=== PATIENT | male | born 1960 | race African-American/Black ===

== ENCOUNTER 2023-03-01 10:43 | Inpatient (IN) | payer MEDICARE ==
[2023-03-01] MEDS ORDERED: Senokot S 8.6-50 MG TAB PO PRN (12:58)
[2023-03-01] MEDS ORDERED: Ondansetron ODT 4 MG TAB SL PRN (12:58)
[2023-03-01] MEDS ORDERED: Mometasone/Formoterol 60 PUFF AER INH SCH (20:15)
[2023-03-01] MEDS: Methocarbamol 500 MG TAB PO SCH ×3 (20:59→21:03)
[2023-03-01] MEDS: Pregabalin 50 MG CAP PO SCH (21:00)
[2023-03-01] MEDS: Atorvastatin Calcium 20 MG TAB PO SCH (21:00)
[2023-03-01] MEDS: levETIRAcetam 500 MG TAB PO SCH (21:00)
[2023-03-01] MEDS: Scopolamine 1.5 mg/72 hour Patch TD SCH (21:04)
[2023-03-02 05:49] LABS: #Basophils 0.1 thou/uL (0.0-0.2); #Eosinphils 0.1 thou/uL (0.0-0.7); #Lymphocytes 2.3 thou/uL (1.20-3.40); #Monocytes 0.6 thou/uL (0.11-0.59); #Neutrophils 4.9 thou/uL (1.40-6.50); %Basophils 1.4 % (0.0-1.0); %Eosinophils 1.3 % (0.0-10.0); %Lymphocytes 28.9 % (21.0-51.0); %Monocytes 7.4 % (0.0-10.0); Hemoglobin 12.6 g/dL (14.0-18.0); Mean Corpuscular HGB CONC 31.7 g/dL (32.0-36.0); Mean Corpuscular Hemoglobin 27.6 pg (27.0-31.0); Mean Platelet Volume 7.3 fL (7.4-10.4); Platelet Count 409 10x3/uL (130-400); RBC Distribution Width 12.5 % (11.5-14.5); Red Blood Cell (RBC) Count 4.58 mill/uL (4.70-6.10); White Blood Cell (WBC) Count 8.1 10x3/uL (4.8-10.8)
[2023-03-02 06:05] LABS: ALT (SGPT) 66 U/L (8-55); AST (SGOT) 37 U/L (5-34); Alkaline Phosphatase 212 U/L (40-110); Anion Gap 17 mmol/L (10-20); BUN (Urea Nitrogen) 11 mg/dL (8.4-25.7); Bilirubin, Total 0.5 mg/dL (0.2-1.2); Calc. Creatinine Clearance 157 mL/min (70-130); Carbon Dioxide 23 mmol/L (23-31); Chloride 98 mmol/L (98-107); Estimated GFR 82; Globulin 3.4 g/dL (2.4-3.5); Glucose 102 mg/dL (80-115); Potassium 3.7 mmol/L (3.5-5.1); Protein, Total 7.4 g/dL (5.8-8.1); Sodium 134 mmol/L (136-145)
[2023-03-02] MEDS: Mometasone/Formoterol 60 PUFF AER INH SCH ×2 (06:10→18:35)
[2023-03-02] MEDS: Pregabalin 50 MG CAP PO SCH ×2 (08:56→21:25)
[2023-03-02] MEDS: Ferrous Sulfate 325 MG TAB PO SCH (08:56)
[2023-03-02] MEDS: Methocarbamol 500 MG TAB PO SCH ×3 (08:57→21:25)
[2023-03-02] MEDS: levETIRAcetam 500 MG TAB PO SCH ×2 (08:57→21:26)
[2023-03-02] MEDS: DULoxetine 30 MG CAP PO SCH (08:57)
[2023-03-02] MEDS ORDERED: Non-Formulary Item 1 EACH (Fluticasone/Umeclidin/Vilanter [Trelegy Ellipta 200-62.5-25] 1 IH SCH (09:00)
[2023-03-02] MEDS: Acetaminophen 325 MG TAB PO PRN (09:03)
[2023-03-02] MEDS ORDERED: hydrALAZINE 10 MG TAB PO PRN (16:42)
[2023-03-02] MEDS ORDERED: Meclizine HCl 25 MG TAB PO PRN (17:00)
[2023-03-02] MEDS: Atorvastatin Calcium 20 MG TAB PO SCH (21:25)
[2023-03-03] MEDS: Mometasone/Formoterol 60 PUFF AER INH SCH ×2 (05:42→18:29)
[2023-03-03] MEDS: DULoxetine 30 MG CAP PO SCH (08:49)
[2023-03-03] MEDS: Ferrous Sulfate 325 MG TAB PO SCH (08:49)
[2023-03-03] MEDS: levETIRAcetam 500 MG TAB PO SCH ×2 (08:50→21:16)
[2023-03-03] MEDS: Methocarbamol 500 MG TAB PO SCH ×3 (08:51→21:16)
[2023-03-03] MEDS: Pregabalin 50 MG CAP PO SCH ×2 (08:51→21:17)
[2023-03-03] MEDS: Acetaminophen 325 MG TAB PO PRN ×2 (08:53→18:45)
[2023-03-03] MEDS: Atorvastatin Calcium 20 MG TAB PO SCH (21:16)
[2023-03-04] MEDS: Mometasone/Formoterol 60 PUFF AER INH SCH ×2 (05:36→18:17)
[2023-03-04] MEDS: Methocarbamol 500 MG TAB PO SCH ×3 (08:07→21:56)
[2023-03-04] MEDS: DULoxetine 30 MG CAP PO SCH (08:07)
[2023-03-04] MEDS: Ferrous Sulfate 325 MG TAB PO SCH (08:07)
[2023-03-04] MEDS: levETIRAcetam 500 MG TAB PO SCH ×2 (08:07→21:56)
[2023-03-04] MEDS: Pregabalin 50 MG CAP PO SCH ×2 (08:07→21:56)
[2023-03-04 13:37] LABS: Anion Gap 16 mmol/L (10-20); BUN (Urea Nitrogen) 10 mg/dL (8.4-25.7); Calc. Creatinine Clearance 154 mL/min (70-130); Calcium 9.7 mg/dL (7.8-10.44); Carbon Dioxide 23 mmol/L (23-31); Chloride 102 mmol/L (98-107); Estimated GFR 80; Glucose 113 mg/dL (80-115); Magnesium 1.7 mg/dL (1.6-2.6); Potassium 3.6 mmol/L (3.5-5.1); Sodium 137 mmol/L (136-145)
[2023-03-04] MEDS: Atorvastatin Calcium 20 MG TAB PO SCH (21:56)
[2023-03-04] MEDS: Scopolamine 1.5 mg/72 hour Patch TD SCH (22:00)
[2023-03-05 05:28] VITALS: BMI 46.0
[2023-03-05] MEDS: Mometasone/Formoterol 60 PUFF AER INH SCH ×2 (06:13→17:57)
[2023-03-05] MEDS: levETIRAcetam 500 MG TAB PO SCH ×2 (08:19→20:56)
[2023-03-05] MEDS: Ferrous Sulfate 325 MG TAB PO SCH (08:19)
[2023-03-05] MEDS: DULoxetine 30 MG CAP PO SCH (08:19)
[2023-03-05] MEDS: Methocarbamol 500 MG TAB PO SCH ×3 (08:19→20:58)
[2023-03-05] MEDS: Pregabalin 50 MG CAP PO SCH ×2 (08:19→20:56)
[2023-03-05] MEDS: Acetaminophen 325 MG TAB PO PRN (20:57)
[2023-03-05] MEDS: Atorvastatin Calcium 20 MG TAB PO SCH (20:58)
[2023-03-06] MEDS: Mometasone/Formoterol 60 PUFF AER INH SCH ×2 (05:59→17:41)
[2023-03-06] MEDS: levETIRAcetam 500 MG TAB PO SCH ×2 (08:48→20:49)
[2023-03-06] MEDS: Ferrous Sulfate 325 MG TAB PO SCH (08:48)
[2023-03-06] MEDS: DULoxetine 30 MG CAP PO SCH (08:48)
[2023-03-06] MEDS: Methocarbamol 500 MG TAB PO SCH ×3 (08:48→20:50)
[2023-03-06] MEDS: Pregabalin 50 MG CAP PO SCH ×2 (08:48→20:49)
[2023-03-06] MEDS: Atorvastatin Calcium 20 MG TAB PO SCH (20:49)
[2023-03-07] MEDS: Mometasone/Formoterol 60 PUFF AER INH SCH ×2 (05:36→17:45)
[2023-03-07 05:56] LABS: #Basophils 0.1 thou/uL (0.0-0.2); #Eosinphils 0.1 thou/uL (0.0-0.7); #Lymphocytes 2.3 thou/uL (1.20-3.40); #Monocytes 0.5 thou/uL (0.11-0.59); #Neutrophils 3.3 thou/uL (1.40-6.50); %Basophils 1.5 % (0.0-1.0); %Lymphocytes 36.7 % (21.0-51.0); %Neutrophils 52.7 % (42.0-75.0); Hemoglobin 11.2 g/dL (14.0-18.0); Mean Corpuscular HGB CONC 30.8 g/dL (32.0-36.0); Mean Corpuscular Hemoglobin 27.2 pg (27.0-31.0); Mean Corpuscular Volume 88.4 fl (78.0-98.0); Mean Platelet Volume 7.6 fL (7.4-10.4); Platelet Count 310 10x3/uL (130-400); RBC Distribution Width 12.7 % (11.5-14.5); Red Blood Cell (RBC) Count 4.13 mill/uL (4.70-6.10); White Blood Cell (WBC) Count 6.3 10x3/uL (4.8-10.8)
[2023-03-07 06:08] LABS: Anion Gap 14 mmol/L (10-20); BUN (Urea Nitrogen) 8 mg/dL (8.4-25.7); Calc. Creatinine Clearance 173 mL/min (70-130); Calcium 9.5 mg/dL (7.8-10.44); Carbon Dioxide 25 mmol/L (23-31); Chloride 103 mmol/L (98-107); Estimated GFR 91; Glucose 109 mg/dL (80-115); Potassium 3.8 mmol/L (3.5-5.1); Sodium 138 mmol/L (136-145)
[2023-03-07] MEDS: Acetaminophen 325 MG TAB PO PRN (08:12)
[2023-03-07] MEDS: Methocarbamol 500 MG TAB PO SCH ×3 (08:13→20:52)
[2023-03-07] MEDS: Ferrous Sulfate 325 MG TAB PO SCH (08:14)
[2023-03-07] MEDS: DULoxetine 30 MG CAP PO SCH (08:14)
[2023-03-07] MEDS: levETIRAcetam 500 MG TAB PO SCH ×2 (08:14→20:51)
[2023-03-07] MEDS: Pregabalin 50 MG CAP PO SCH ×2 (08:14→20:51)
[2023-03-07] MEDS: Atorvastatin Calcium 20 MG TAB PO SCH (20:51)
[2023-03-07] MEDS: Scopolamine 1.5 mg/72 hour Patch TD SCH (20:52)
[2023-03-08] MEDS: Mometasone/Formoterol 60 PUFF AER INH SCH ×2 (06:27→17:37)
[2023-03-08] MEDS: levETIRAcetam 500 MG TAB PO SCH ×2 (07:45→20:36)
[2023-03-08] MEDS: Acetaminophen 325 MG TAB PO PRN ×2 (07:46→14:13)
[2023-03-08] MEDS: Methocarbamol 500 MG TAB PO SCH ×3 (07:47→20:36)
[2023-03-08] MEDS: Ferrous Sulfate 325 MG TAB PO SCH (07:47)
[2023-03-08] MEDS: Pregabalin 50 MG CAP PO SCH ×2 (07:47→20:36)
[2023-03-08] MEDS: DULoxetine 30 MG CAP PO SCH (07:47)
[2023-03-08] MEDS: Atorvastatin Calcium 20 MG TAB PO SCH (20:36)
[2023-03-09] MEDS: Mometasone/Formoterol 60 PUFF AER INH SCH ×2 (06:18→18:37)
[2023-03-09] MEDS: Ferrous Sulfate 325 MG TAB PO SCH (07:42)
[2023-03-09] MEDS: Pregabalin 50 MG CAP PO SCH ×2 (07:42→20:46)
[2023-03-09] MEDS: DULoxetine 30 MG CAP PO SCH (07:43)
[2023-03-09] MEDS: Methocarbamol 500 MG TAB PO SCH ×3 (07:43→20:46)
[2023-03-09] MEDS: levETIRAcetam 500 MG TAB PO SCH ×2 (07:43→20:46)
[2023-03-09] MEDS: Acetaminophen 325 MG TAB PO PRN ×2 (07:44→11:41)
[2023-03-09] MEDS: Atorvastatin Calcium 20 MG TAB PO SCH (20:46)
[2023-03-10] MEDS: Mometasone/Formoterol 60 PUFF AER INH SCH ×2 (07:17→18:25)
[2023-03-10] MEDS: Pregabalin 50 MG CAP PO SCH ×2 (07:52→21:06)
[2023-03-10] MEDS: Methocarbamol 500 MG TAB PO SCH ×3 (07:52→21:08)
[2023-03-10] MEDS: levETIRAcetam 500 MG TAB PO SCH ×2 (07:52→21:06)
[2023-03-10] MEDS: Ferrous Sulfate 325 MG TAB PO SCH (07:52)
[2023-03-10] MEDS: DULoxetine 30 MG CAP PO SCH (07:55)
[2023-03-10] MEDS: Scopolamine 1.5 mg/72 hour Patch TD SCH (10:37)
[2023-03-10] MEDS: Atorvastatin Calcium 20 MG TAB PO SCH (21:08)
[2023-03-11] MEDS: Mometasone/Formoterol 60 PUFF AER INH SCH ×2 (06:29→21:28)
[2023-03-11] MEDS: DULoxetine 30 MG CAP PO SCH (07:32)
[2023-03-11] MEDS: Pregabalin 50 MG CAP PO SCH ×2 (07:32→21:25)
[2023-03-11] MEDS: Methocarbamol 500 MG TAB PO SCH ×3 (07:33→21:24)
[2023-03-11] MEDS: levETIRAcetam 500 MG TAB PO SCH ×2 (07:33→21:24)
[2023-03-11] MEDS: Ferrous Sulfate 325 MG TAB PO SCH (07:33)
[2023-03-11] MEDS: Atorvastatin Calcium 20 MG TAB PO SCH (21:24)
[2023-03-12] MEDS: Mometasone/Formoterol 60 PUFF AER INH SCH ×2 (05:29→17:52)
[2023-03-12 05:45] LABS: #Basophils 0.1 thou/uL (0.0-0.2); #Eosinphils 0.1 thou/uL (0.0-0.7); #Lymphocytes 2.2 thou/uL (1.20-3.40); #Monocytes 0.5 thou/uL (0.11-0.59); #Neutrophils 3.8 thou/uL (1.40-6.50); %Basophils 1.7 % (0.0-1.0); %Eosinophils 1.9 % (0.0-10.0); %Lymphocytes 33.2 % (21.0-51.0); %Monocytes 7.6 % (0.0-10.0); %Neutrophils 55.7 % (42.0-75.0); Hemoglobin 11.7 g/dL (14.0-18.0); Mean Corpuscular HGB CONC 30.7 g/dL (32.0-36.0); Mean Corpuscular Hemoglobin 27.2 pg (27.0-31.0); Mean Corpuscular Volume 88.4 fl (78.0-98.0); Platelet Count 272 10x3/uL (130-400); RBC Distribution Width 12.8 % (11.5-14.5); White Blood Cell (WBC) Count 6.8 10x3/uL (4.8-10.8)
[2023-03-12 05:55] LABS: Anion Gap 16 mmol/L (10-20); BUN (Urea Nitrogen) 8 mg/dL (8.4-25.7); Calc. Creatinine Clearance 173 mL/min (70-130); Calcium 9.7 mg/dL (7.8-10.44); Carbon Dioxide 25 mmol/L (23-31); Chloride 103 mmol/L (98-107); Estimated GFR 91; Glucose 101 mg/dL (80-115); Potassium 3.8 mmol/L (3.5-5.1); Sodium 140 mmol/L (136-145)
[2023-03-12] MEDS: Pregabalin 50 MG CAP PO SCH ×2 (09:26→21:02)
[2023-03-12] MEDS: levETIRAcetam 500 MG TAB PO SCH ×2 (09:26→21:02)
[2023-03-12] MEDS: DULoxetine 30 MG CAP PO SCH (09:27)
[2023-03-12] MEDS: Methocarbamol 500 MG TAB PO SCH ×3 (09:27→21:02)
[2023-03-12] MEDS: Ferrous Sulfate 325 MG TAB PO SCH (09:27)
[2023-03-12] MEDS: Atorvastatin Calcium 20 MG TAB PO SCH (21:02)
[2023-03-13] MEDS: Mometasone/Formoterol 60 PUFF AER INH SCH ×2 (05:39→17:46)
[2023-03-13] MEDS: Ferrous Sulfate 325 MG TAB PO SCH (08:04)
[2023-03-13] MEDS: DULoxetine 30 MG CAP PO SCH (08:04)
[2023-03-13] MEDS: levETIRAcetam 500 MG TAB PO SCH ×2 (08:04→20:58)
[2023-03-13] MEDS: Pregabalin 50 MG CAP PO SCH ×2 (08:04→20:58)
[2023-03-13] MEDS: Methocarbamol 500 MG TAB PO SCH ×3 (08:04→20:58)
[2023-03-13] MEDS: Acetaminophen 325 MG TAB PO PRN ×3 (08:18→20:57)
[2023-03-13] MEDS: Atorvastatin Calcium 20 MG TAB PO SCH (20:58)
[2023-03-13] MEDS: Scopolamine 1.5 mg/72 hour Patch TD SCH (21:05)
[2023-03-14] MEDS: Mometasone/Formoterol 60 PUFF AER INH SCH (05:36)
[2023-03-14] MEDS: Pregabalin 50 MG CAP PO SCH (08:25)
[2023-03-14] MEDS: Methocarbamol 500 MG TAB PO SCH (08:26)
[2023-03-14] MEDS: Ferrous Sulfate 325 MG TAB PO SCH (08:26)
[2023-03-14] MEDS: DULoxetine 30 MG CAP PO SCH (08:26)
[2023-03-14] MEDS: levETIRAcetam 500 MG TAB PO SCH (08:27)
[2023-03-14 08:48] VITALS: BP 136/84; TEMP 99.2
== END 2023-03-14 11:45 | disposition home or self-care (01) | DRG 948 ==
LOC: NAV ACUTE 18:31
PROVIDERS: ADMIT Family Medicine; ATTEND Family Medicine
DX: R53.1 Weakness (principal); Z47.89 Encounter for other orthopedic aftercare; I10 Essential (primary) hypertension; K21.9 Gastro-esophageal reflux disease without esophagitis; J44.9 Chronic obstructive pulmonary disease, unspecified; G47.33 Obstructive sleep apnea (adult) (pediatric); G89.29 Other chronic pain; M54.9 Dorsalgia, unspecified; I95.1 Orthostatic hypotension; Z98.890 Other specified postprocedural states
CPT/HCPCS: 36415; 80048; 80053; 80177; 83735; 85025; J1650